=== PATIENT | female | born 1955 | race Caucasian/White ===

== ENCOUNTER 2020-11-06 18:35 | Emergency (ER) | payer OTHER ==
[~2020-11-06] VITALS: Ht 162.6 cm; Wt 50.8 kg
[2020-11-06 18:40] VITALS: Ht 162.6 cm; Wt 50.8 kg
[2020-11-06 22:00] VITALS: BP 172/96
== END 2020-11-06 21:00 | disposition designated cancer center or children's hospital (05) ==
LOC: ED 18:35
DX: I16.0 Hypertensive urgency (principal)